=== PATIENT | male | born 1975 | race Caucasian/White ===

== ENCOUNTER 2017-01-15 19:59 | Emergency (ER) | payer OTHER ==
[~2017-01-15] VITALS: Ht 193 cm; Wt 106.0 kg
[~2017-01-15 19:59] MED LIST: CIPR500T4 PO; IBUP600 PO; TRAM50 PO
[2017-01-15 21:36] VITALS: BP 131/90; PULSE 64; RESP 18; TEMP 97.7; O2SAT 99
[2017-01-16 01:29] VITALS: BP 153/79; PULSE 62; RESP 18; TEMP 97.7; O2SAT 100
[2017-01-16] MEDS ORDERED: ASPI1TAB69 PO (01:38)
[2017-01-16] MEDS ORDERED: MAGN64 PO (01:38)
--- NOTE | 2017-01-16 02:58 | PD ---
HPI Chief Complaint: Musculoskeletal Complaint Time Seen by Provider: 02:35 Travel History International Travel<30 days: No Contact w/Intl Traveler<30days: No Traveled to known affect area: No History of Present Illness HPI The patient is a 41-year-old right-hand dominant male that for 4 days complains of a pain on his left medial biceps. Sometimes it goes to the antecubital fossa. It never hurts in the neck and never radiates to his hand or forearm. He denies any fever. He has tenderness over the medial biceps and it hurts to use the biceps. He denies any trauma. He has never had this before. He denies any swelling of the hand and his ring that he wears on his left hand is not tight. 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) Musculoskeletal: Yes (Right knee pain) Tetanus Vaccination: > 5 Years Influenza Vaccination: Yes Past Surgical History Cardiac Surgery: Yes (ABLATION X2) Genitourinary Surgery: Yes (VASECTOMY) Tonsillectomy: Yes Social History Alcohol Use: No Tobacco Use: No Substance Use: No Allergies-Medications (Allergen,Severity, Reaction): Coded Allergies: Tramadol (Verified Allergy, Tee Cartwright, 01/16/17) Reported Meds & Prescriptions Reported Meds & Active Scripts Active Ibuprofen 800 Mg Tab 800 Mg PO TID Reported Mag64 (Magnesium Chloride) 64 Mg Tab 64 Mg PO BID Aspirin 81 Mg Tabdr 81 Mg PO DAILY Review of Systems Except as stated in HPI: all other systems reviewed are Neg Physical Exam Narrative GENERAL: Well-nourished, well-developed patient in slight apparent distress with his medial left biceps discomfort. SKIN: Warm and dry. HEAD: Normocephalic. EYES: No scleral icterus. No injection or drainage. NECK: Supple, trachea midline. No JVD or lymphadenopathy. I cannot reproduce the patient's pain by pressing where the nerves exit the cervical spine. CARDIOVASCULAR: Regular rate and rhythm without murmurs, gallops, or rubs. RESPIRATORY: Breath sounds equal bilaterally. No accessory muscle use. GASTROINTESTINAL: Abdomen soft, non-tender, nondistended. MUSCULOSKELETAL: No cyanosis, or edema. There is no erythema or mass around the left biceps. He has an area of tenderness on his medial biceps. There is nothing different about the tender area as opposed to the nontender area on palpation. BACK: Nontender without obvious deformity. No CVA tenderness. Peripheral neuro: There is no loss of pinprick sensation over the left hand. He has good strength of the left hand and there is no swelling of the left hand. He feels no pain in the left hand. Good capillary refill is present on the fingers of the left hand. He has good radial pulses on the left wrist. There is normal warmth over the left hand. Data Data Last Documented VS Vital Signs Date Time Temp Pulse Resp B/P Pulse Ox O2 Delivery O2 Flow Rate FiO2 01/16/17 01:29 97.7 62 18 153/79 100 Orders Splint Or Brace Apply/Monitor (01/16/17 02:58) Ketorolac Inj (Toradol Inj) (01/16/17 03:00) MDM Medical Decision Making Medical Screen Exam Complete: Yes Emergency Medical Condition: Yes Medical Record Reviewed: Yes Differential Diagnosis Tendinitis, fasciitis, cervical radiculopathy, deep abscess upper arm Narrative Course The patient probably has a fasciitis of the medial left upper arm. I can easily reproduce the pain by pressing on this area. There are no findings to suggest any of the other possibilities as listed above. Diagnosis Primary Impression: Fasciitis Additional Instructions: Try heating pad, turned on its lowest setting an interposed a towel between your skin and the pad so that you do not burn your skin. Warmth is desirable but not hot. Also, take the Motrin 800 mg regularly, 1 tablet 3 times daily. Follow-up with orthopedics as scheduled. Med/Other Pt SpecificInfo: Prescription(s) given Scripts Ibuprofen 800 Mg [id number] Mg PO TID #45 TAB Ref 0 Prov:David Sharpe MD 01/16/17 Disposition: 01 DISCHARGE HOME Condition: Stable David Sharpe MD Jan 16, 2017 02:58
[2017-01-16] MEDS ORDERED: KETOROLAC TROMETHAMINE 60 MG/2 ML (IM) VIAL IM ONE (03:00)
[2017-01-16] MEDS ORDERED: IBUP800T23 PO (03:04)
[2017-01-16 03:10] VITALS: BP 141/80; PULSE 63; RESP 18; O2SAT 100
== END 2017-01-16 03:33 | disposition home or self-care (01) ==
LOC: PHED 19:59
DX: M72.9 Fibroblastic disorder, unspecified (principal)
CPT/HCPCS: 96372; 99283; J1885